=== PATIENT | male | born 1960 | race Caucasian/White ===

== ENCOUNTER 2016-07-12 17:07 | Emergency (ER) | payer BC ==
[2016-07-12] MEDS ORDERED: OPTIRAY 350 100 ML VIAL HMH IV ONE (17:08)
== END 2016-07-12 23:24 | disposition home or self-care (01) ==
LOC: ER 17:07
CPT/HCPCS: 36415 ×2; 71010 ×2; 71260 ×2; 80053 ×2; 82550 ×2; 83735 ×2; 84484 ×2; 85025 ×2; 85379 ×2; 85610 ×2; 85730 ×2; 93005 ×2; 99285; Q9967